=== PATIENT | female | born 1975 | race African-American/Black ===

== ENCOUNTER 2019-03-17 17:56 | Outpatient (CLI) | payer BC ==
[2019-03-17 18:51] LABS: Free T4 (Free Thyroxine) 0.79 ng/dL (0.70-1.48); Thyroid Stimulating Hormone 1.5684 uIU/mL (0.35-4.94)
== END 2019-03-17 17:57 | disposition home or self-care (01) ==
LOC: LAB 17:56
PROVIDERS: ATTEND Family Medicine
DX: E03.9 Hypothyroidism, unspecified (principal)
CPT/HCPCS: 36415; 84439; 84443; 84481

== ENCOUNTER 2021-01-19 10:22 | Outpatient (CLI) | payer BC | END 2021-01-19 10:23 | disposition home or self-care (01) | LOC: DTY/OP 10:22 | PROVIDERS: ATTEND Family Medicine | DX: E66.01 Morbid (severe) obesity due to excess calories (principal) | CPT/HCPCS: 97802 ==